=== PATIENT | female | born 1985 | race Caucasian/White ===

== ENCOUNTER 2023-03-24 21:24 | Emergency (ER) | payer OTHER ==
[~2023-03-24] VITALS: Ht 165.1 cm; Wt 97.5 kg
[2023-03-24 21:29] VITALS: BP_SYST 131; PULSE 85; RESP 18; TEMP 97.9; O2SAT 98
--- NOTE | 2023-03-24 22:01 | NUR ---
PT PRESENTS TO ED WITH HEADACHE LOWER RIGHT POSTERIOR HEADACHE AND RIGHT EYE PRESSURE. VSS NAD PLACED IN CHAIR 1 IN ED
--- NOTE | 2023-03-24 22:50 | NUR ---
ER at bedside examining patient.
[2023-03-24] MEDS ORDERED: iohexoL 350 mgI/mL, 100 ML INFUS..BTL IV ONE (23:21)
--- NOTE | 2023-03-24 23:40 | NUR ---
# 20 gauge angiocath placed to RAC. Use of asceptic technique. Opsite placed over site. Blood return noted. Blood for lab drawn from site. Flushed with 10 cc of normal saline. No evidence of infiltration noted. Patient tolerated well.
--- NOTE | 2023-03-24 23:42 | NUR ---
Patient transported to radiology via WHEELCHAIR, accompanied by GENERAL CONTRACTOR.
--- NOTE | 2023-03-25 00:03 | NUR ---
PT BACK FROM CT
--- NOTE | 2023-03-25 01:00 | NUR ---
Patient given written and verbal discharge instructions and verbalizes understanding. ER MD discussed with patient the results and treatment provided. Patient in stable condition. ID arm band removed. Patient educated on HEAD pain management and to follow up with PMD. Pain Scale . Opportunity for questions provided and answered. Medication side effect fact sheet provided.
[2023-03-25 01:56] VITALS: BP_SYST 131; PULSE 85; RESP 18; TEMP 97.9; O2SAT 98
== END 2023-03-25 01:56 | disposition home or self-care (01) ==
LOC: SED 21:24
DX: G44.009 Cluster headache syndrome, unspecified, not intractable (principal); Z79.899 Other long term (current) drug therapy
CPT/HCPCS: 99285; 70496; 70498; 70450; 76376; Q9967